=== PATIENT | male | born 1935 | race Caucasian/White ===

== ENCOUNTER 2017-08-12 05:57 | Day surgery (SDC) | payer OTHER ==
[2017-08-12 06:58] VITALS: BMI 32.8
[2017-08-12] MEDS ORDERED: LIDOCAINE 1%/EPI 1:100000 (20 ML MULTI DOSE VIAL) ONE (07:08)
[2017-08-12] MEDS ORDERED: methylPREDNISolone ACET (DEPO) 40 MG/1 ML VIAL ONE (07:08)
[2017-08-12] MEDS ORDERED: THROMBIN (BOVINE) 5,000 UNIT VIAL TP ONE ×2 (07:08→10:23)
[2017-08-12] MEDS ORDERED: ePHEDrine SULFATE 50 MG/1 ML AMPULE ONE (07:34)
[2017-08-12] MEDS ORDERED: SUCCINYLCHOLINE CHLORIDE 200 MG/10 ML VIAL ONE (07:34)
[2017-08-12] MEDS ORDERED: MIDAZOLAM HCL 2 MG/2 ML SINGLE DOSE VIAL ONE ×3 (07:34→07:42)
[2017-08-12] MEDS ORDERED: PROPOFOL 20 ML ONE (07:34)
[2017-08-12] MEDS ORDERED: ceFAZolin SODIUM 1 GM VIAL ONE (07:35)
--- NOTE | 2017-08-12 07:35 | HP ---
History & Physical Update - History History: No Change - Physical Physical: No Change - Assessment Assessment: No Change - Plan Plan: No Change
[2017-08-12] MEDS ORDERED: LIDOCAINE 1%/EPI 1:100000 (50 ML MULTI DOSE VIAL) INF ONE (09:00)
[2017-08-12] MEDS ORDERED: methylPREDNISolone ACET (DEPO) 40 MG/1 ML VIAL IM ONE (10:15)
[2017-08-12] MEDS ORDERED: GELATIN SPONGE,ABSORBABLE 1 GM PACKET TP ONE (10:24)
[2017-08-12] MEDS ORDERED: oxyCODONE HCL 5 MG TABLET PO PRN ×2 (11:06)
[2017-08-12] MEDS ORDERED: ONDANSETRON 4 MG/2 ML VIAL IVPUSH PRN (11:06)
[2017-08-12] MEDS ORDERED: LACTATED RINGERS SOLUTION 1,000 ML IV SCH (11:15)
--- NOTE | 2017-08-12 12:52 | SURG ---
Surgery Vinyl Hanger Note Vinyl Hanger: Tamar Paniagua PA-C Date of Service: 08/12/17 Diagnosis: lumbar stenosis Procedure: laminectomy of L3/4 and L4/5 I was present for the entirety of the operative procedure. For further detail, please refer to operative report. Visit type - Case Type Case Type: Scheduled Admission - Emergency Emergency Visit: No - New patient This patient is new to me today: Yes Date on this admission: 08/12/17
--- NOTE | 2017-08-12 12:52 | OP ---
Operative Note - Note: Operative Date: 08/12/17 Pre-Operative Diagnosis: lumbar stenosis Operation: laminectomhy of L3/4 and L4/5 Surgeon: Yahir Srivastava Custom Bookbinder: Tamar Paniagua Anesthesiologist/REGIONAL MARKETING MANAGER: Christine Ballesteros Anesthesia: Spinal Estimated Blood Loss (mls): 20 Fluid Volume Replaced (mls): 800 Operative Report Dictated: Yes
[2017-08-12 15:32] VITALS: BP 148/91; PULSE 78; TEMP 97.8
== END 2017-08-12 14:30 | disposition home or self-care (01) ==
LOC: FASU 05:57
PROVIDERS: ATTEND Orthopaedic Surgery Orthopaedic Surgery of the Spine
PROC: 01NB0ZZ Release Lumbar Nerve, Open Approach (ICD-10-PCS; principal; 2017-08-12 09:21)
DX: M48.061 Spinal stenosis, lumbar region without neurogenic claudication (principal); M48.07 Spinal stenosis, lumbosacral region
CPT/HCPCS: 72100-TC-FY; 94760